=== PATIENT | female | born 1975 | race Caucasian/White ===

== ENCOUNTER → 2017-05-19 | Outpatient (CLI) | payer OTHER, BC ==
[~2017-05-19] MED LIST: DOXE150C PO; DROX100C PO; DROX300C PO; DULO60CA7 PO; GABA600T2 PO; OXCA300T PO
[2017-05-19 09:53] LABS: HEMATOCRIT 39.3 % (34.6-47.8); HEMOGLOBIN 13.3 g/dL (11.7-16.4); WHITE BLOOD COUNT 6.6 x10^3/uL (3.4-10)
[2017-05-19 10:27] LABS: ASPARTATE AMINO TRANSFERASE 18 U/L (15-37); BLOOD UREA NITROGEN 10 mg/dL (7-18)
== END | disposition home or self-care (01) ==
LOC: STAR 08:19
PROVIDERS: ATTEND Neurological Surgery
DX: Z01.818 Encounter for other preprocedural examination (principal); I51.7 Cardiomegaly; M41.84 Other forms of scoliosis, thoracic region; M43.16 Spondylolisthesis, lumbar region; M51.26 Other intervertebral disc displacement, lumbar region; M51.27 Other intervertebral disc displacement, lumbosacral region; Z98.890 Other specified postprocedural states
CPT/HCPCS: 36415; 71020; 72148; 80053; 81003; 85025; 85610; 85730; 93005

== ENCOUNTER 2017-06-15 05:38 | Inpatient (IN) | payer OTHER, BC ==
[~2017-06-15] VITALS: Ht 175.3 cm; Wt 111.0 kg
[2017-06-15] MEDS ORDERED: LACTATED RINGERS 1,000 ML IV SCH (06:19)
[2017-06-15] MEDS ORDERED: LIDOCAINE 1%, 2ML ONE (06:21)
[2017-06-15 06:25] VITALS: BP 137/95
[2017-06-15] MEDS ORDERED: LIDOCAINE 1%, 2ML SQ PRN (06:30)
[2017-06-15] MEDS ORDERED: FENTANYL PF 100 MCG/2ML ONE ×3 (07:03→14:35)
[2017-06-15] MEDS ORDERED: MIDAZOLAM 1 MG/ML, 2ML ONE (07:03)
[2017-06-15] MEDS ORDERED: PROPOFOL 50 ML ONE ×6 (07:07→12:01)
[2017-06-15] MEDS ORDERED: DROX100C PO (07:19)
[2017-06-15] MEDS ORDERED: PROPOFOL 10 MG/ML, 20ML ONE (07:36)
[2017-06-15] MEDS ORDERED: NEOSTIGMINE 1 MG/ML, 10ML ONE (07:36)
[2017-06-15] MEDS ORDERED: CEFAZOLIN 1,000 MG ONE ×2 (07:36→07:51)
[2017-06-15] MEDS ORDERED: SUCCINYLCHOLINE 20 MG/ML, 10ML ONE (07:36)
[2017-06-15] MEDS ORDERED: DEXAMETHASONE 4 MG/ML, 1ML ONE (07:36)
[2017-06-15] MEDS ORDERED: ROCURONIUM 10 MG/ML,10ML ONE (07:36)
[2017-06-15] MEDS ORDERED: ONDANSETRON 2MG/ML, 2ML ONE (07:36)
[2017-06-15] MEDS ORDERED: GLYCOPYRROLATE 0.2MG/1ML, 5ML ONE (07:36)
[2017-06-15] MEDS ORDERED: HYDROmorphone 2 MG/ML, 1ML ONE (08:18)
[2017-06-15] MEDS ORDERED: DIAZEPAM 5 MG/ML, 2ML IVPush PRN (09:30)
[2017-06-15] MEDS ORDERED: ALBUTEROL SULFATE 2.5 MG/3 ML NPPB PRN (09:30)
[2017-06-15] MEDS ORDERED: LABETALOL 5MG/ML, 20ML IV PRN (09:30)
[2017-06-15] MEDS ORDERED: MEPERIDINE/PF 25MG/0.5ML IVPush PRN (09:30)
[2017-06-15] MEDS ORDERED: MIDAZOLAM 1 MG/ML, 2ML IV PRN (09:30)
[2017-06-15] MEDS ORDERED: ACETAMINOPHEN 325 MG TABLET PO PRN ×2 (09:30→13:00)
[2017-06-15] MEDS ORDERED: HYDROcodone/APAP 7.5-325MG/15ML UDC PO PRN (09:30)
[2017-06-15] MEDS ORDERED: PROMETHAZINE 25 MG/ML, 1ML IV PRN (09:30)
[2017-06-15] MEDS ORDERED: HYDROmorphone 1 MG/ML, 1ML IV PRN (09:30)
[2017-06-15] MEDS ORDERED: METOPROLOL 1 MG/ML, 5ML IV PRN (09:30)
[2017-06-15] MEDS ORDERED: ONDANSETRON 2MG/ML, 2ML IVPush PRN ×2 (09:30→13:00)
[2017-06-15] MEDS ORDERED: hydrALAzine 20 MG/ML, 1ML IV PRN (09:30)
[2017-06-15] MEDS ORDERED: THROMBIN 5,000 UNIT VIAL TP ONE ×2 (10:20→10:54)
[2017-06-15] MEDS ORDERED: VANCOMYCIN 1,000 MG IM ONE (11:35)
[2017-06-15] MEDS ORDERED: EPHEDRINE 50 MG/ML, 1ML ONE (12:53)
[2017-06-15] MEDS ORDERED: HYDROmorphone 1 MG/ML, 1ML IVPush PRN (13:00)
[2017-06-15] MEDS ORDERED: MEPERIDINE/PF 100 MG/ML IM PRN (13:00)
[2017-06-15] MEDS ORDERED: DIPHENHYDRAMINE 50 MG/ML, 1ML IVPush PRN (13:00)
[2017-06-15] MEDS ORDERED: PHARMACY MAY ADJ FOR RENAL FX MC PRN (13:00)
[2017-06-15] MEDS ORDERED: MAGNESIUM HYDROXIDE 8%, 30ML UDC PO PRN (13:00)
[2017-06-15] MEDS: EPHEDRINE 50 MG/ML, 1ML IVPush PRN ×2 (13:00→13:10)
[2017-06-15] MEDS ORDERED: BISACODYL 10 MG SUPP PR PRN (13:00)
[2017-06-15] MEDS ORDERED: PROMETHAZINE 25 MG/ML, 1ML IM PRN (13:00)
[2017-06-15] MEDS: FENTANYL PF 100 MCG/2ML IV PRN ×6 (13:10→14:50)
[2017-06-15] MEDS ORDERED: ACETAMINOPHEN 650 MG/20.3 ML UDC ONE (13:16)
[2017-06-15] MEDS ORDERED: HYDROmorphone PCA 30 MG/30 ML ONE (13:16)
[2017-06-15] MEDS ORDERED: OXYcodone 5 MG/5 ML ORAL.SOL UDC ONE ×2 (13:16→14:11)
[2017-06-15] MEDS ORDERED: ACETAMINOPHEN 325 MG TABLET ONE (13:16)
[2017-06-15] MEDS: OXYcodone 5 MG/5 ML ORAL.SOL UDC PO PRN ×2 (13:20→14:10)
[2017-06-15] MEDS: HYDROmorphone PCA 30 MG/30 ML IV PRN (13:40)
[2017-06-15] MEDS: METHOCARBAMOL 750 MG TABLET PO SCH ×2 (16:53→20:14)
[2017-06-15] MEDS: GABAPENTIN 300 MG CAPSULE PO SCH ×2 (16:53→20:14)
[2017-06-15] MEDS: NS + 20MEQ KCL 1,000 ML IV SCH (18:32)
[2017-06-15 20:00] VITALS: BP 108/71
[2017-06-15] MEDS: CEFAZOLIN PMX 1GM/50ML 50 ML IVPB SCH (20:13)
[2017-06-15] MEDS: DROXIDOPA HOMEMEDPO SCH (20:14)
[2017-06-15] MEDS: DULOXETINE 30 MG CAPSULE.DR PO SCH (20:14)
[2017-06-15] MEDS: DOXEPIN 100 MG CAPSULE PO SCH (20:15)
[2017-06-15] MEDS: OXCARBAZEPINE 150 MG TABLET PO SCH (20:15)
[2017-06-15] MEDS: DOXEPIN 25 MG CAPSULE PO SCH (20:15)
[2017-06-15] MEDS: SODIUM CHLORIDE FLUSH 10ML SYR IVF SCH (20:19)
[2017-06-15 23:49] VITALS: BP 101/66
[2017-06-16 03:36] VITALS: BP 95/56
[2017-06-16] MEDS: NS + 20MEQ KCL 1,000 ML IV SCH ×2 (03:54→15:13)
[2017-06-16] MEDS: OXYcodone/APAP 5/325MG TABLET PO PRN ×5 (03:54→20:41)
[2017-06-16] MEDS: CEFAZOLIN PMX 1GM/50ML 50 ML IVPB SCH (03:55)
[2017-06-16] MEDS: METHOCARBAMOL 750 MG TABLET PO SCH ×4 (05:00→20:42)
[2017-06-16 05:51] LABS: MEAN CORPUSCULAR HEMOGLOBIN 30.8 pg (27.0-34.8); MEAN CORPUSCULAR HGB CONC 34.1 g/dL (32.4-35.8); MEAN CORPUSCULAR VOLUME 90.2 fL (80-100); MEAN PLATELET VOLUME 8.5 fL (7.4-10.4); PLATELET COUNT 175 x10^3/uL (130-400); RED BLOOD COUNT 2.54 x10^6/uL (3.82-5.3); RED CELL DISTRIBUTION WIDTH 14.3 % (9.6-15.2)
[2017-06-16 06:00] LABS: ANION GAP 6 mmol/L (5-15); CALCIUM 7.8 mg/dL (8.5-10.1); CHLORIDE 107 mmol/L (98-107); CREATININE 0.92 mg/dL (0.55-1.02)
[2017-06-16 06:13] LABS: BASOPHILS # (AUTO) 0.02 x10^3/uL (0-0.1); BASOPHILS % (AUTO) 0 % (0-1); EOSINOPHILS % (AUTO) 0 % (1-7); LYMPHOCYTES # (AUTO) 1.79 x10^3/uL (1-3.4); LYMPHOCYTES % (AUTO) 21 % (22-44); MD SCAN; MONOCYTES # (AUTO) 0.67 x10^3/uL (0.2-0.8); MONOCYTES % (AUTO) 8 % (2-9); NEUTROPHILS % (AUTO) 71 % (42-75)
[2017-06-16 07:25] VITALS: BP 122/74
[2017-06-16] MEDS ORDERED: DROXIDOPA HOMEMEDPO SCH (08:00)
[2017-06-16] MEDS: SENNA/DOCUSATE TABLET PO SCH (08:31)
[2017-06-16] MEDS: GABAPENTIN 300 MG CAPSULE PO SCH ×3 (08:31→20:42)
[2017-06-16] MEDS: DROXIDOPA HOMEMEDPO SCH ×2 (08:32→12:18)
[2017-06-16] MEDS: OXCARBAZEPINE 150 MG TABLET PO SCH ×2 (08:32→20:42)
[2017-06-16] MEDS: DULOXETINE 30 MG CAPSULE.DR PO SCH ×2 (08:32→20:42)
[2017-06-16] MEDS: SODIUM CHLORIDE FLUSH 10ML SYR IVF SCH ×2 (08:32→20:41)
[2017-06-16 13:19] VITALS: BP 127/79
[2017-06-16] MEDS: HYDROmorphone PCA 30 MG/30 ML IV PRN (16:08)
[2017-06-16 18:34] VITALS: BP 92/58
[2017-06-16] MEDS: DOXEPIN 25 MG CAPSULE PO SCH (20:41)
[2017-06-16] MEDS: DOXEPIN 100 MG CAPSULE PO SCH (20:42)
[2017-06-16] MEDS: DROXIDOPA 600 MG HOMEMEDPO SCH (20:43)
[2017-06-16] MEDS: DIAZEPAM 5 MG TABLET PO PRN (20:56)
[2017-06-17] VITALS (12 sets, daily range): BP systolic 92–140; BP diastolic 58–94
[2017-06-17] MEDS: OXYcodone/APAP 5/325MG TABLET PO PRN ×3 (00:18→08:20)
[2017-06-17] MEDS: NS + 20MEQ KCL 1,000 ML IV SCH ×3 (00:18→20:58)
[2017-06-17] MEDS: DIAZEPAM 5 MG TABLET PO PRN (03:23)
[2017-06-17 05:06] LABS: MEAN CORPUSCULAR HEMOGLOBIN 30.3 pg (27.0-34.8); MEAN CORPUSCULAR HGB CONC 33.4 g/dL (32.4-35.8); MEAN CORPUSCULAR VOLUME 90.8 fL (80-100); MEAN PLATELET VOLUME 8.2 fL (7.4-10.4); PLATELET COUNT 174 x10^3/uL (130-400); RED BLOOD COUNT 2.41 x10^6/uL (3.82-5.3); RED CELL DISTRIBUTION WIDTH 14.7 % (9.6-15.2)
[2017-06-17 05:09] LABS: ANION GAP 5 mmol/L (5-15); CALCIUM 7.6 mg/dL (8.5-10.1); CHLORIDE 109 mmol/L (98-107); CREATININE 0.75 mg/dL (0.55-1.02)
[2017-06-17] MEDS: METHOCARBAMOL 750 MG TABLET PO SCH ×4 (05:20→21:03)
[2017-06-17 05:47] LABS: BASOPHILS # (AUTO) 0.02 x10^3/uL (0-0.1); BASOPHILS % (AUTO) 0 % (0-1); EOSINOPHILS # (AUTO) 0.09 x10^3/uL (0-0.4); EOSINOPHILS % (AUTO) 1 % (1-7); LYMPHOCYTES % (AUTO) 20 % (22-44); MD SCAN; MONOCYTES # (AUTO) 0.63 x10^3/uL (0.2-0.8); MONOCYTES % (AUTO) 8 % (2-9); NEUTROPHILS % (AUTO) 71 % (42-75)
[2017-06-17] MEDS: DULOXETINE 30 MG CAPSULE.DR PO SCH ×2 (08:15→20:59)
[2017-06-17] MEDS: OXCARBAZEPINE 150 MG TABLET PO SCH ×2 (08:15→21:02)
[2017-06-17] MEDS: SODIUM CHLORIDE FLUSH 10ML SYR IVF SCH ×2 (08:15→20:59)
[2017-06-17] MEDS: SENNA/DOCUSATE TABLET PO SCH (08:15)
[2017-06-17] MEDS: GABAPENTIN 300 MG CAPSULE PO SCH ×3 (08:15→20:59)
[2017-06-17] MEDS: DROXIDOPA HOMEMEDPO SCH ×3 (08:17→21:03)
[2017-06-17] MEDS ORDERED: METH750T2 PO (08:28)
[2017-06-17] MEDS ORDERED: OXYC1TAB9 PO (08:28)
[2017-06-17] MEDS: OXYcodone/APAP 10/325MG TABLET PO PRN ×3 (12:18→21:03)
[2017-06-17] MEDS: DOXEPIN 100 MG CAPSULE PO SCH (21:00)
[2017-06-17] MEDS: DROXIDOPA 600 MG HOMEMEDPO SCH (21:00)
[2017-06-17] MEDS: DOXEPIN 25 MG CAPSULE PO SCH (21:02)
[2017-06-18 01:24] VITALS: BP 112/77
[2017-06-18] MEDS: OXYcodone/APAP 10/325MG TABLET PO PRN ×6 (01:33→22:29)
[2017-06-18] MEDS: DIAZEPAM 5 MG TABLET PO PRN ×2 (01:35→22:00)
[2017-06-18 05:31] LABS: ANION GAP 6 mmol/L (5-15); CHLORIDE 103 mmol/L (98-107); CREATININE 0.71 mg/dL (0.55-1.02)
[2017-06-18 05:39] LABS: BASOPHILS # (AUTO) 0.03 x10^3/uL (0-0.1); BASOPHILS % (AUTO) 0 % (0-1); EOSINOPHILS # (AUTO) 0.15 x10^3/uL (0-0.4); EOSINOPHILS % (AUTO) 2 % (1-7); LYMPHOCYTES # (AUTO) 1.27 x10^3/uL (1-3.4); LYMPHOCYTES % (AUTO) 13 % (22-44); MD NO; MEAN CORPUSCULAR HEMOGLOBIN 31.4 pg (27.0-34.8); MEAN CORPUSCULAR HGB CONC 34.5 g/dL (32.4-35.8); MEAN PLATELET VOLUME 8.9 fL (7.4-10.4); MONOCYTES # (AUTO) 0.74 x10^3/uL (0.2-0.8); MONOCYTES % (AUTO) 7 % (2-9); NEUTROPHILS % (AUTO) 78 % (42-75); PLATELET COUNT 185 x10^3/uL (130-400); RED BLOOD COUNT 3.08 x10^6/uL (3.82-5.3); RED CELL DISTRIBUTION WIDTH 14.1 % (9.6-15.2)
[2017-06-18] MEDS: NS + 20MEQ KCL 1,000 ML IV SCH ×2 (05:54→16:00)
[2017-06-18] MEDS: METHOCARBAMOL 750 MG TABLET PO SCH ×4 (05:58→21:59)
[2017-06-18] MEDS: GABAPENTIN 300 MG CAPSULE PO SCH ×3 (08:11→21:59)
[2017-06-18] MEDS: SENNA/DOCUSATE TABLET PO SCH (08:11)
[2017-06-18] MEDS: DULOXETINE 30 MG CAPSULE.DR PO SCH ×2 (08:11→21:59)
[2017-06-18] MEDS: OXCARBAZEPINE 150 MG TABLET PO SCH ×2 (08:11→22:00)
[2017-06-18] MEDS: SODIUM CHLORIDE FLUSH 10ML SYR IVF SCH ×2 (08:12→21:58)
[2017-06-18] MEDS: DROXIDOPA HOMEMEDPO SCH ×2 (08:15→12:35)
[2017-06-18 08:20] VITALS: BP 108/72
[2017-06-18 13:55] VITALS: BP 104/73
[2017-06-18 19:02] VITALS: BP 106/75
[2017-06-18] MEDS: DROXIDOPA 600 MG HOMEMEDPO SCH (21:58)
[2017-06-18] MEDS: DOXEPIN 100 MG CAPSULE PO SCH (21:59)
[2017-06-18] MEDS: DOXEPIN 25 MG CAPSULE PO SCH (22:00)
[2017-06-19] MEDS: NS + 20MEQ KCL 1,000 ML IV SCH ×2 (02:14→17:01)
[2017-06-19 02:32] VITALS: BP 119/80
[2017-06-19] MEDS: OXYcodone/APAP 10/325MG TABLET PO PRN ×6 (02:36→23:41)
[2017-06-19] MEDS: DIAZEPAM 5 MG TABLET PO PRN ×2 (04:43→21:15)
[2017-06-19 05:10] LABS: BASOPHILS # (AUTO) 0.03 x10^3/uL (0-0.1); BASOPHILS % (AUTO) 0 % (0-1); EOSINOPHILS # (AUTO) 0.24 x10^3/uL (0-0.4); EOSINOPHILS % (AUTO) 3 % (1-7); LYMPHOCYTES # (AUTO) 1.56 x10^3/uL (1-3.4); LYMPHOCYTES % (AUTO) 17 % (22-44); MD NO; MEAN CORPUSCULAR HEMOGLOBIN 31.4 pg (27.0-34.8); MEAN CORPUSCULAR HGB CONC 34.3 g/dL (32.4-35.8); MEAN CORPUSCULAR VOLUME 91.3 fL (80-100); MEAN PLATELET VOLUME 8.6 fL (7.4-10.4); MONOCYTES # (AUTO) 0.61 x10^3/uL (0.2-0.8); MONOCYTES % (AUTO) 7 % (2-9); NEUTROPHILS % (AUTO) 73 % (42-75); PLATELET COUNT 209 x10^3/uL (130-400); RED BLOOD COUNT 3.11 x10^6/uL (3.82-5.3); RED CELL DISTRIBUTION WIDTH 14.4 % (9.6-15.2)
[2017-06-19 05:23] LABS: ANION GAP 8 mmol/L (5-15); CALCIUM 7.9 mg/dL (8.5-10.1); CHLORIDE 102 mmol/L (98-107)
[2017-06-19 05:24] LABS: CREATININE 0.67 mg/dL (0.55-1.02)
[2017-06-19] MEDS: METHOCARBAMOL 750 MG TABLET PO SCH ×4 (06:29→21:16)
[2017-06-19 07:00] VITALS: BP 123/86
[2017-06-19] MEDS: DROXIDOPA HOMEMEDPO SCH ×2 (08:00→14:05)
[2017-06-19] MEDS ORDERED: SODIUM CHLORIDE 0.9% 1,000 ML IV SCH (08:30)
[2017-06-19] MEDS: SODIUM CHLORIDE FLUSH 10ML SYR IVF SCH ×2 (09:00→21:00)
[2017-06-19] MEDS: SENNA/DOCUSATE TABLET PO SCH (10:22)
[2017-06-19] MEDS: GABAPENTIN 300 MG CAPSULE PO SCH ×3 (10:22→21:16)
[2017-06-19] MEDS: FAMOTIDINE 20 MG TABLET PO SCH ×2 (10:23→21:16)
[2017-06-19] MEDS: DEXAMETHASONE 4 MG TABLET PO SCH ×3 (10:23→21:16)
[2017-06-19] MEDS: OXCARBAZEPINE 150 MG TABLET PO SCH ×2 (10:23→21:16)
[2017-06-19] MEDS: DULOXETINE 30 MG CAPSULE.DR PO SCH ×2 (10:24→21:15)
[2017-06-19 14:30] VITALS: BP 126/72
[2017-06-19 19:02] VITALS: BP 149/95
[2017-06-19] MEDS: DOXEPIN 100 MG CAPSULE PO SCH (21:00)
[2017-06-19] MEDS: DOXEPIN 25 MG CAPSULE PO SCH (21:16)
[2017-06-19] MEDS: DROXIDOPA 600 MG HOMEMEDPO SCH (21:19)
[2017-06-20] MEDS: NS + 20MEQ KCL 1,000 ML IV SCH ×2 (03:15→12:00)
[2017-06-20] MEDS: DIAZEPAM 5 MG TABLET PO PRN ×2 (03:17→11:06)
[2017-06-20] MEDS: DEXAMETHASONE 4 MG TABLET PO SCH ×2 (03:17→08:43)
[2017-06-20 03:54] VITALS: BP 146/98
[2017-06-20] MEDS: OXYcodone/APAP 10/325MG TABLET PO PRN ×3 (04:23→12:40)
[2017-06-20 05:50] LABS: BASOPHILS # (AUTO) 0.01 x10^3/uL (0-0.1); BASOPHILS % (AUTO) 0 % (0-1); EOSINOPHILS % (AUTO) 0 % (1-7); LYMPHOCYTES # (AUTO) 0.93 x10^3/uL (1-3.4); LYMPHOCYTES % (AUTO) 11 % (22-44); MD NO; MEAN CORPUSCULAR HGB CONC 34.1 g/dL (32.4-35.8); MONOCYTES # (AUTO) 0.32 x10^3/uL (0.2-0.8); MONOCYTES % (AUTO) 4 % (2-9); NEUTROPHILS # (AUTO) 7.37 x10^3/uL (1.8-6.8); NEUTROPHILS % (AUTO) 86 % (42-75); PLATELET COUNT 245 x10^3/uL (130-400); RED BLOOD COUNT 3.21 x10^6/uL (3.82-5.3); RED CELL DISTRIBUTION WIDTH 14.4 % (9.6-15.2)
[2017-06-20 06:08] LABS: ANION GAP 7 mmol/L (5-15); CALCIUM 8.3 mg/dL (8.5-10.1); CHLORIDE 106 mmol/L (98-107); CREATININE 0.69 mg/dL (0.55-1.02)
[2017-06-20] MEDS: METHOCARBAMOL 750 MG TABLET PO SCH ×2 (06:19→11:06)
[2017-06-20 06:54] VITALS: BP 129/84
[2017-06-20] MEDS: SODIUM CHLORIDE FLUSH 10ML SYR IVF SCH (08:43)
[2017-06-20] MEDS: FAMOTIDINE 20 MG TABLET PO SCH (08:43)
[2017-06-20] MEDS: GABAPENTIN 300 MG CAPSULE PO SCH (08:43)
[2017-06-20] MEDS: DULOXETINE 30 MG CAPSULE.DR PO SCH (08:43)
[2017-06-20] MEDS: OXCARBAZEPINE 150 MG TABLET PO SCH (08:44)
[2017-06-20] MEDS: SENNA/DOCUSATE TABLET PO SCH (08:44)
[2017-06-20] MEDS: DROXIDOPA HOMEMEDPO SCH ×2 (08:44→12:40)
[2017-06-20] MEDS ORDERED: METH4TAB2 PO (14:09)
== END 2017-06-20 14:26 | disposition home or self-care (01) | DRG 455 ==
LOC: ORIP 05:38 → 4NOR 15:51 → DCLOUNGE 06-20 13:55
PROVIDERS: ADMIT Neurological Surgery; ATTEND Neurological Surgery
PROC: 0SG30AJ Fusion of Lumbosacral Joint with Interbody Fusion Device, Posterior Approach, Anterior Column, Open Approach (ICD-10-PCS; 2017-06-15)
PROC: 01NB0ZZ Release Lumbar Nerve, Open Approach (ICD-10-PCS; 2017-06-15)
PROC: 0SP004Z Removal of Internal Fixation Device from Lumbar Vertebral Joint, Open Approach (ICD-10-PCS; 2017-06-15)
PROC: 0SG00J1 Fusion of Lumbar Vertebral Joint with Synthetic Substitute, Posterior Approach, Posterior Column, Open Approach (ICD-10-PCS; principal; 2017-06-15 07:30)
PROC: 30233N1 Transfusion of Nonautologous Red Blood Cells into Peripheral Vein, Percutaneous Approach (ICD-10-PCS; 2017-06-17)
DX: M48.07 Spinal stenosis, lumbosacral region (principal); G89.29 Other chronic pain; I95.1 Orthostatic hypotension; M51.36 Other intervertebral disc degeneration, lumbar region; M51.37 Other intervertebral disc degeneration, lumbosacral region; Z86.711 Personal history of pulmonary embolism
CPT/HCPCS: 36415; 72100; 72131; 80048; 85025; 86850; 86900; 86923; 95938; 95941; C1713; C1776; J0171; J0690; J1100; J1170; J2250; J2405; J2550; J2704; J2710; J3010; J3370; J3480; J3490; C1762; C1781; J0330; J7030; J7120; P9016

== ENCOUNTER → 2020-12-16 | Outpatient (CLI) | payer BC, OTHER ==
[~2020-12-16] MED LIST changes: +CARI6CAP PO; -GABA600T2 PO; +GABA600T7 PO; +METF500T17 PO; +METH-640 PO; +METH4TAB2 PO; -OXCA300T PO; +OXCA300T19 PO; +OXYC1TAB18 PO
[2020-12-16 14:46] LABS: BASOPHILS % (AUTO) 1 % (0-1); EOSINOPHILS % (AUTO) 3 % (1-7); LYMPHOCYTES % (AUTO) 33 % (22-44); MEAN CORPUSCULAR HEMOGLOBIN 30.5 pg (27.0-34.8); MEAN CORPUSCULAR HGB CONC 33.2 g/dL (32.4-35.8); MEAN PLATELET VOLUME 8.4 fL (7.4-10.4); MONOCYTES % (AUTO) 6 % (2-9); NEUTROPHILS % (AUTO) 58 % (42-75); PLATELET COUNT 256 x10^3/uL (130-400)
[2020-12-16 14:50] LABS: MICROSCOPIC NOT IND
[2020-12-16 14:57] LABS: ALBUMIN 4.3 g/dL (3.4-5.0); ANION GAP 4 mmol/L (5-15); CALCIUM 9.1 mg/dL (8.5-10.1); CHLORIDE 107 mmol/L (98-107)
[2020-12-16 14:59] LABS: INTERNATIONAL NORMALIZED RATIO 1.07 (0.93-1.1); PROTHROMBIN TIME 11.4 Seconds (9.6-11.5)
[2020-12-16 15:00] LABS: ALANINE AMINOTRANSFERASE 31 U/L (12-78); ALKALINE PHOSPHATASE 78 U/L (45-117); BILIRUBIN,TOTAL 0.6 mg/dL (0.2-1.0); CREATININE 1.06 mg/dL (0.55-1.02); TOTAL PROTEIN 7.6 g/dL (6.4-8.2)
== END | disposition home or self-care (01) ==
LOC: STAR 13:43
PROVIDERS: ATTEND Neurological Surgery
DX: Z01.818 Encounter for other preprocedural examination (principal); M47.896 Other spondylosis, lumbar region; I51.7 Cardiomegaly; Z20.822 Contact with and (suspected) exposure to COVID-19
CPT/HCPCS: 36415; 71046; 80053; 81003; 85025; 85610; 85730; 93005; U0003; U0005

== ENCOUNTER 2020-12-24 09:15 | Inpatient (IN) | payer BC, OTHER ==
[~2020-12-24] VITALS: Ht 172.7 cm; Wt 124.8 kg
[2020-12-24] MEDS ORDERED: CHLORHEXIDINE 15 ML UDC PO ONE (10:00)
[2020-12-24] MEDS ORDERED: LACTATED RINGERS 1,000 ML IV SCH (10:30)
[2020-12-24] MEDS ORDERED: EPINEPHRINE 1 MG/ML, 1ML ONE (11:03)
[2020-12-24] MEDS ORDERED: BUPIVACAINE/PF 0.25% ONE (11:03)
[2020-12-24] MEDS ORDERED: VANCOMYCIN 1,000 MG ONE (11:06)
[2020-12-24] MEDS ORDERED: GENTAMICIN 80 MG/2 ML ONE (11:06)
[2020-12-24] MEDS ORDERED: CEFAZOLIN 1,000 MG ONE (11:06)
[2020-12-24] MEDS ORDERED: BUPIVACAINE/PF 0.5% ONE (11:15)
[2020-12-24] MEDS ORDERED: HYDROmorphone 1 MG/ML, 1ML INJ IVPush PRN (11:30)
[2020-12-24] MEDS ORDERED: MEPERIDINE/PF 25MG/0.5ML IVPush PRN (11:30)
[2020-12-24] MEDS ORDERED: ONDANSETRON 2MG/ML, 2ML IVPush PRN (11:30)
[2020-12-24] MEDS ORDERED: METHOCARBAMOL 1,000 MG in DEXTROSE 5% 100 ML IV PRN (11:30)
[2020-12-24] MEDS ORDERED: ACETAMINOPHEN 325 MG TABLET PO PRN (11:30)
[2020-12-24] MEDS ORDERED: morphine SULFATE 10 MG/ML, 1ML IVPush PRN (11:30)
[2020-12-24] MEDS ORDERED: PROMETHAZINE 25 MG/ML, 1ML IVPush PRN (11:30)
[2020-12-24] MEDS ORDERED: LABETALOL 5MG/ML, 20ML IV PRN (11:30)
[2020-12-24] MEDS ORDERED: hydrALAzine 20 MG/ML, 1ML IV PRN (11:30)
[2020-12-24] MEDS ORDERED: LORazepam 2 MG/ML, 1ML IVPush PRN (11:30)
[2020-12-24] MEDS ORDERED: EPHEDRINE 50 MG/ML, 1ML IVPush PRN (11:30)
[2020-12-24] MEDS ORDERED: OXYcodone 5 MG/5 ML ORAL.SOL UDC PO PRN (11:30)
[2020-12-24] MEDS ORDERED: SUGAMMADEX 200 MG/2 ML IVPush ONE (11:55)
[2020-12-24] MEDS ORDERED: FENTANYL PF 250 MCG/5ML ONE ×3 (11:55)
[2020-12-24] MEDS ORDERED: KETAMINE 10 MG/ML, 20ML ONE (11:55)
[2020-12-24] MEDS ORDERED: PROPOFOL 10 MG/ML, 50ML ONE (11:55)
[2020-12-24] MEDS ORDERED: OXYcodone 5 MG/5 ML ORAL.SOL UDC ONE (11:55)
[2020-12-24] MEDS ORDERED: HYDROmorphone 2 MG/ML, 1ML ONE (11:55)
[2020-12-24] MEDS ORDERED: MIDAZOLAM 1 MG/ML, 2ML ONE (11:55)
[2020-12-24] MEDS ORDERED: HEPARIN 1,000 UNITS/ML, 10ML ONE (12:30)
[2020-12-24] MEDS: FENTANYL PF 100 MCG/2ML IV PRN ×2 (16:00→16:40)
[2020-12-24] MEDS ORDERED: FENTANYL PF 100 MCG/2ML ONE (16:13)
[2020-12-24] MEDS ORDERED: HYDROmorphone 1 MG/ML, 1ML INJ ONE (16:48)
[2020-12-24] MEDS ORDERED: ONDANSETRON 2MG/ML, 2ML IV PRN (18:30)
[2020-12-24] MEDS ORDERED: DIPHENHYDRAMINE 25 MG CAPSULE PO PRN (18:30)
[2020-12-24] MEDS ORDERED: BISACODYL 10 MG SUPP PR PRN (18:30)
[2020-12-24] MEDS ORDERED: PROMETHAZINE 25 MG/ML, 1ML IM PRN (18:30)
[2020-12-24] MEDS ORDERED: DIPHENHYDRAMINE 50 MG/ML, 1ML IVPush PRN (18:30)
[2020-12-24] MEDS ORDERED: morphine SULFATE 10 MG/ML, 1ML IV PRN (18:30)
[2020-12-24 18:32] VITALS: BP 128/67
[2020-12-24] MEDS: HYDROmorphone PCA 30 MG/30 ML IV PRN (19:32)
[2020-12-24] MEDS: DOXEPIN 25 MG CAPSULE PO SCH (20:32)
[2020-12-24] MEDS: DOXEPIN 100 MG CAPSULE PO SCH (20:32)
[2020-12-24] MEDS: DULOXETINE 30 MG CAPSULE.DR PO SCH (20:33)
[2020-12-24] MEDS: CEFAZOLIN PMX 1GM/50ML 50 ML IVPB SCH (23:59)
[2020-12-25 00:04] VITALS: BP 98/63
[2020-12-25] MEDS: NS + 20MEQ KCL 1,000 ML IV SCH ×3 (02:49→23:00)
[2020-12-25 03:07] VITALS: BP 105/65
[2020-12-25 05:31] LABS: BASOPHILS % (AUTO) 0 % (0-1); EOSINOPHILS % (AUTO) 0 % (1-7); LYMPHOCYTES % (AUTO) 19 % (22-44); MEAN CORPUSCULAR HGB CONC 33.8 g/dL (32.4-35.8); MEAN PLATELET VOLUME 8.7 fL (7.4-10.4); MONOCYTES % (AUTO) 7 % (2-9); NEUTROPHILS % (AUTO) 73 % (42-75); PLATELET COUNT 203 x10^3/uL (130-400); RED BLOOD COUNT 3.11 x10^6/uL (3.82-5.3); RED CELL DISTRIBUTION WIDTH 13.8 % (9.6-15.2)
[2020-12-25 05:42] LABS: CHLORIDE 106 mmol/L (98-107)
[2020-12-25 05:46] LABS: ANION GAP 7 mmol/L (5-15); CALCIUM 8.1 mg/dL (8.5-10.1); CREATININE 1.07 mg/dL (0.55-1.02)
[2020-12-25 08:00] VITALS: BP 100/64
[2020-12-25] MEDS: CEFAZOLIN PMX 1GM/50ML 50 ML IVPB SCH (08:00)
[2020-12-25] MEDS: metFORMIN 500 MG TABLET PO SCH (09:00)
[2020-12-25] MEDS: CARIPRAZINE 6 MG CAP PO SCH (09:00)
[2020-12-25] MEDS: DULOXETINE 30 MG CAPSULE.DR PO SCH ×2 (09:38→20:52)
[2020-12-25] MEDS: SENNA/DOCUSATE TABLET PO SCH (09:38)
[2020-12-25 14:08] VITALS: BP 100/60
[2020-12-25 18:45] VITALS: BP 123/75
[2020-12-25] MEDS: HYDROmorphone PCA 30 MG/30 ML IV PRN (20:37)
[2020-12-25] MEDS: ACETAMINOPHEN 325 MG TABLET PO PRN (20:48)
[2020-12-25] MEDS: DOXEPIN 100 MG CAPSULE PO SCH (20:52)
[2020-12-25] MEDS: DOXEPIN 25 MG CAPSULE PO SCH (22:45)
[2020-12-26 03:13] VITALS: BP 123/75
[2020-12-26 05:21] LABS: BASOPHILS % (AUTO) 0 % (0-1); EOSINOPHILS % (AUTO) 2 % (1-7); LYMPHOCYTES % (AUTO) 16 % (22-44); MEAN CORPUSCULAR HEMOGLOBIN 31.7 pg (27.0-34.8); MEAN CORPUSCULAR HGB CONC 34.3 g/dL (32.4-35.8); MONOCYTES % (AUTO) 9 % (2-9); NEUTROPHILS % (AUTO) 73 % (42-75); PLATELET COUNT 180 x10^3/uL (130-400); RED BLOOD COUNT 2.93 x10^6/uL (3.82-5.3); RED CELL DISTRIBUTION WIDTH 13.9 % (9.6-15.2)
[2020-12-26 05:32] LABS: ANION GAP 3 mmol/L (5-15); CALCIUM 7.8 mg/dL (8.5-10.1); CHLORIDE 106 mmol/L (98-107)
[2020-12-26 07:50] VITALS: BP 112/69
[2020-12-26] MEDS: SENNA/DOCUSATE TABLET PO SCH (08:12)
[2020-12-26] MEDS: metFORMIN 500 MG TABLET PO SCH (08:13)
[2020-12-26] MEDS: DULOXETINE 30 MG CAPSULE.DR PO SCH ×2 (08:13→20:43)
[2020-12-26] MEDS: ACETAMINOPHEN 325 MG TABLET PO PRN ×2 (08:14→17:13)
[2020-12-26] MEDS: CARIPRAZINE 6 MG CAP PO SCH (09:00)
[2020-12-26] MEDS: NS + 20MEQ KCL 1,000 ML IV SCH ×2 (09:00→19:00)
[2020-12-26] MEDS: OXYcodone IR 5MG TABLET PO PRN ×5 (11:34→23:41)
[2020-12-26 14:45] VITALS: BP 109/67
[2020-12-26 19:07] VITALS: BP 137/80
[2020-12-26] MEDS: DOXEPIN 25 MG CAPSULE PO SCH (20:44)
[2020-12-26] MEDS: DOXEPIN 100 MG CAPSULE PO SCH (20:44)
[2020-12-27 00:24] VITALS: BP 99/66
[2020-12-27] MEDS: OXYcodone IR 5MG TABLET PO PRN ×6 (02:36→19:39)
[2020-12-27] MEDS: NS + 20MEQ KCL 1,000 ML IV SCH ×2 (05:00→14:29)
[2020-12-27 08:25] VITALS: BP 131/80
[2020-12-27] MEDS: metFORMIN 500 MG TABLET PO SCH (08:27)
[2020-12-27] MEDS: DULOXETINE 30 MG CAPSULE.DR PO SCH ×2 (08:28→19:40)
[2020-12-27] MEDS: SENNA/DOCUSATE TABLET PO SCH (08:29)
[2020-12-27] MEDS ORDERED: METHOCARBAMOL 750 MG TABLET PO PRN (08:30)
[2020-12-27] MEDS: CARIPRAZINE 6 MG CAP PO SCH (08:31)
[2020-12-27 13:24] VITALS: BP 133/82
[2020-12-27] MEDS: MAGNESIUM HYDROXIDE 8%, 30ML UDC PO PRN (16:10)
[2020-12-27 19:10] VITALS: BP 111/78
[2020-12-27] MEDS: DOXEPIN 25 MG CAPSULE PO SCH (19:39)
[2020-12-27] MEDS: DOXEPIN 100 MG CAPSULE PO SCH (21:01)
[2020-12-28 00:51] VITALS: BP 100/69
[2020-12-28] MEDS: NS + 20MEQ KCL 1,000 ML IV SCH ×3 (01:00→21:00)
[2020-12-28] MEDS: OXYcodone IR 5MG TABLET PO PRN ×8 (03:04→21:58)
[2020-12-28 06:08] LABS: BASOPHILS % (AUTO) 1 % (0-1); EOSINOPHILS % (AUTO) 6 % (1-7); LYMPHOCYTES % (AUTO) 33 % (22-44); MEAN CORPUSCULAR HEMOGLOBIN 31.5 pg (27.0-34.8); MEAN CORPUSCULAR HGB CONC 34.9 g/dL (32.4-35.8); MEAN PLATELET VOLUME 9.5 fL (7.4-10.4); MONOCYTES % (AUTO) 7 % (2-9); NEUTROPHILS % (AUTO) 53 % (42-75); PLATELET COUNT 208 x10^3/uL (130-400); RED BLOOD COUNT 2.78 x10^6/uL (3.82-5.3); RED CELL DISTRIBUTION WIDTH 13.8 % (9.6-15.2)
[2020-12-28 07:20] VITALS: BP 130/83
[2020-12-28] MEDS: SENNA/DOCUSATE TABLET PO SCH (08:49)
[2020-12-28] MEDS: DULOXETINE 30 MG CAPSULE.DR PO SCH ×2 (08:49→19:57)
[2020-12-28] MEDS: metFORMIN 500 MG TABLET PO SCH (08:49)
[2020-12-28] MEDS: CARIPRAZINE 6 MG CAP PO SCH (08:52)
[2020-12-28] MEDS: MAGNESIUM HYDROXIDE 8%, 30ML UDC PO PRN (08:53)
[2020-12-28] MEDS: TIZANIDINE 4MG TABLET PO SCH ×2 (08:58→18:22)
[2020-12-28] MEDS ORDERED: TIZANIDINE 4MG TABLET PO SCH (09:00)
[2020-12-28] MEDS ORDERED: OXYC-302 PO (11:55)
[2020-12-28] MEDS ORDERED: TIZA-106 PO (11:55)
[2020-12-28 13:30] VITALS: BP 135/84
[2020-12-28 19:29] VITALS: BP 125/92
[2020-12-28] MEDS: DOXEPIN 100 MG CAPSULE PO SCH (19:57)
[2020-12-28] MEDS: DOXEPIN 25 MG CAPSULE PO SCH (19:57)
[2020-12-29 00:56] VITALS: BP 114/74
[2020-12-29] MEDS: TIZANIDINE 4MG TABLET PO SCH ×2 (01:30→08:26)
[2020-12-29] MEDS: OXYcodone IR 5MG TABLET PO PRN ×4 (01:30→11:48)
[2020-12-29] MEDS: NS + 20MEQ KCL 1,000 ML IV SCH (06:37)
[2020-12-29 07:09] VITALS: BP 126/83
[2020-12-29] MEDS: DULOXETINE 30 MG CAPSULE.DR PO SCH (08:24)
[2020-12-29] MEDS: SENNA/DOCUSATE TABLET PO SCH (08:24)
[2020-12-29] MEDS: metFORMIN 500 MG TABLET PO SCH (08:24)
[2020-12-29] MEDS: CARIPRAZINE 6 MG CAP PO SCH (08:30)
[2020-12-29 13:06] VITALS: BP 116/83
== END 2020-12-29 14:30 | disposition home health service (06) | DRG 460 ==
LOC: OUT 09:15 → 3WST 17:15 → OUT 17:36 → 3WST 17:36 → 4NE 12-27 13:53 → DCLOUNGE 12-29 14:24
PROVIDERS: ADMIT Neurological Surgery; ATTEND Neurological Surgery
PROC: 00NY0ZZ Release Lumbar Spinal Cord, Open Approach (ICD-10-PCS; 2020-12-24)
PROC: 00NX0ZZ Release Thoracic Spinal Cord, Open Approach (ICD-10-PCS; 2020-12-24)
PROC: 0RG7071 Fusion of 2 to 7 Thoracic Vertebral Joints with Autologous Tissue Substitute, Posterior Approach, Posterior Column, Open Approach (ICD-10-PCS; 2020-12-24)
PROC: 0PS43ZZ Reposition Thoracic Vertebra, Percutaneous Approach (ICD-10-PCS; 2020-12-24)
PROC: 0PU43JZ Supplement Thoracic Vertebra with Synthetic Substitute, Percutaneous Approach (ICD-10-PCS; 2020-12-24)
PROC: 0QS03ZZ Reposition Lumbar Vertebra, Percutaneous Approach (ICD-10-PCS; 2020-12-24)
PROC: 0QU03JZ Supplement Lumbar Vertebra with Synthetic Substitute, Percutaneous Approach (ICD-10-PCS; 2020-12-24)
PROC: 8E0W0CZ Robotic Assisted Procedure of Trunk Region, Open Approach (ICD-10-PCS; 2020-12-24)
PROC: 0RGA071 Fusion of Thoracolumbar Vertebral Joint with Autologous Tissue Substitute, Posterior Approach, Posterior Column, Open Approach (ICD-10-PCS; principal; 2020-12-24 12:30)
DX: M48.061 Spinal stenosis, lumbar region without neurogenic claudication (principal); G83.4 Cauda equina syndrome; M48.04 Spinal stenosis, thoracic region; M40.205 Unspecified kyphosis, thoracolumbar region; G90.9 Disorder of the autonomic nervous system, unspecified; Z86.711 Personal history of pulmonary embolism; Z88.6 Allergy status to analgesic agent
CPT/HCPCS: 36415; S0020; 80048; 82962; 85025; 86850; 86900; 95938; 95941; C1713; G0378; J0171; J0690; J1170; J1644; J2250; J2405; J2704; J3010; J3370; J3480; C1762; J1580; J2800; J7120